=== PATIENT | male | born 1995 | race African-American/Black ===

== ENCOUNTER 2022-03-21 22:51 | Emergency (ER) | payer OTHER ==
[~2022-03-21] VITALS: Ht 177.8 cm; Wt 82.0 kg
[2022-03-21] MEDS ORDERED: SODIUM CHLORIDE 0.9% 1,000 ML IV ONE (23:30)
[2022-03-22 00:08] LABS: MEAN CORPUSCULAR HEMOGLOBIN 32.7 pg (28.0-32.0); MEAN CORPUSCULAR VOLUME 98.2 fL (80.0-94.0); MEAN PLATELET VOLUME 7.6 fl (7.4-10.4); PLATELET 229 x1000/uL (130-400); RED BLOOD CELL COUNT 3.67 mill/uL (4.7-6.1); RED CELL DISTRIBUTION WIDTH 13.2 % (11.6-14.6)
[2022-03-22 00:13] LABS: CHLORIDE 100 mEq/L (98-107)
[2022-03-22 00:23] LABS: CREATINE KINASE 139 IU/L (39-308); ETHANOL BLOOD < 10 mg/dL
[2022-03-22] MEDS ORDERED: POTASSIUM CHLORIDE 20MEQ TABLET SR PO NR (00:45)
[2022-03-22] MEDS ORDERED: IBUPROFEN 600MG TABLET PO NR (02:11)
[2022-03-22 02:48] LABS: CREATINE KINASE 135 IU/L (39-308)
[2022-03-22 03:03] LABS: CLARITY URINE CLEAR (CLEAR); COLOR URINE YELLOW (YELLOW); KETONES URINE NEGATIVE (NEGATIVE); LEUKOCYTE ESTERASE URINE NEGATIVE (NEGATIVE); NITRITE URINE NEGATIVE (NEGATIVE); OCCULT BLOOD URINE NEGATIVE (NEGATIVE); PH URINE 7.5 (4.5-8.0); PROTEIN URINE NEGATIVE (NEGATIVE); SPECIFIC GRAVITY URINE 1.023 (1.005-1.030)
[2022-03-22 03:20] LABS: *AMPHETAMINES SCREEN URINE PRESUMTIVE POSITIVE (NEGATIVE); *BARBITURATES SCREEN URINE NEGATIVE (NEGATIVE); *BENZODIAZEPINES SCREEN URINE NEGATIVE (NEGATIVE); *COCAINE SCREEN URINE NEGATIVE (NEGATIVE); CANNABINOID URINE SCREEN PRESUMTIVE POSITIVE (NEGATIVE); METHADONE URINE SCREEN NEGATIVE (NEGATIVE); OPIATES URINE SCREEN NEGATIVE (NEGATIVE); PHENCYCLIDINE URINE SCREEN PRESUMTIVE POSITIVE (NEGATIVE)
[2022-03-22 03:51] LABS: PLATELET ESTIMATE NORMAL
[2022-03-22 05:58] VITALS: BP 129/71
== END 2022-03-22 05:50 | disposition home or self-care (01) ==
LOC: ER 22:51 → EDBD 22:51 → ER 03-22 05:50
DX: F19.10 Other psychoactive substance abuse, uncomplicated (principal); R07.9 Chest pain, unspecified
CPT/HCPCS: 36415; 70450; 71045; 80053; 80305; 80320; 81003; 82550; 82962; 84484; 85025; 93005; 96360; 99285; J7030; G0480

== ENCOUNTER 2022-03-22 15:41 | Emergency (ER) | payer OTHER ==
[~2022-03-22] VITALS: Ht 175.3 cm; Wt 76.0 kg
[2022-03-22] MEDS ORDERED: SODIUM CHLORIDE 0.9% 1,000 ML IV ONE (16:00)
[2022-03-22 16:13] LABS: BASOPHILS % 0.2 % (0.0-2.0); EOSINOPHILS % 0.1 % (0.0-5.0); HEMATOCRIT. 34.9 % (42.0-52.0); HEMOGLOBIN. 11.8 g/dL (14.0-18.0); LYMPHOCYTES % 10.6 % (20.0-50.0); MEAN CORPUSCULAR HEMOGLOBIN 32.8 pg (28.0-32.0); MEAN CORPUSCULAR VOLUME 97.4 fL (80.0-94.0); MEAN PLATELET VOLUME 7.2 fl (7.4-10.4); MONOCYTES % 9.9 % (2.0-8.0); NEUTROPHILS % 79.2 % (40.0-76.0); PLATELET 223 x1000/uL (130-400); RED BLOOD CELL COUNT 3.58 mill/uL (4.7-6.1); RED CELL DISTRIBUTION WIDTH 12.8 % (11.6-14.6)
[2022-03-22 16:18] LABS: CHLORIDE 104 mEq/L (98-107)
[2022-03-22 16:27] LABS: ETHANOL BLOOD < 10 mg/dL
[2022-03-22 17:04] LABS: CLARITY URINE CLEAR (CLEAR); COLOR URINE YELLOW (YELLOW); KETONES URINE NEGATIVE (NEGATIVE); LEUKOCYTE ESTERASE URINE NEGATIVE (NEGATIVE); NITRITE URINE NEGATIVE (NEGATIVE); OCCULT BLOOD URINE NEGATIVE (NEGATIVE); PROTEIN URINE NEGATIVE (NEGATIVE); SPECIFIC GRAVITY URINE 1.014 (1.005-1.030)
[2022-03-22 17:15] LABS: *AMPHETAMINES SCREEN URINE PRESUMTIVE POSITIVE (NEGATIVE); *BARBITURATES SCREEN URINE NEGATIVE (NEGATIVE); *BENZODIAZEPINES SCREEN URINE NEGATIVE (NEGATIVE); *COCAINE SCREEN URINE NEGATIVE (NEGATIVE); CANNABINOID URINE SCREEN PRESUMTIVE POSITIVE (NEGATIVE); METHADONE URINE SCREEN NEGATIVE (NEGATIVE); OPIATES URINE SCREEN NEGATIVE (NEGATIVE); PHENCYCLIDINE URINE SCREEN PRESUMTIVE POSITIVE (NEGATIVE)
[2022-03-22] MEDS ORDERED: ACETAMINOPHEN 325MG TABLET PO ONE (22:45)
[2022-03-23 04:57] VITALS: BP 118/73
== END 2022-03-23 05:25 | disposition home or self-care (01) ==
LOC: ER 15:41
DX: T50.7X1A Poisoning by analeptics and opioid receptor antagonists, accidental (unintentional), initial encounter (principal); F12.10 Cannabis abuse, uncomplicated; F15.10 Other stimulant abuse, uncomplicated
CPT/HCPCS: 36415; 71045; 80053; 80305; 80320; 81003; 85025; 93005; 99285; J7030; G0480

== ENCOUNTER 2022-09-01 08:57 | Emergency (ER) | payer OTHER ==
[~2022-09-01] VITALS: Ht 180.3 cm; Wt 91.0 kg
[2022-09-01 08:59] VITALS: BP 110/60
[2022-09-01] MEDS ORDERED: ACETAMINOPHEN 325MG TABLET PO ONE (09:15)
== END 2022-09-01 09:41 ==
LOC: ER 08:57
DX: M54.50 Low back pain, unspecified (principal); G40.909 Epilepsy, unspecified, not intractable, without status epilepticus; F12.10 Cannabis abuse, uncomplicated; F15.10 Other stimulant abuse, uncomplicated; F16.10 Hallucinogen abuse, uncomplicated
CPT/HCPCS: 99283

== ENCOUNTER 2023-08-01 05:34 | Emergency (ER) | payer OTHER ==
[~2023-08-01] VITALS: Ht 185.4 cm; Wt 90.0 kg
[2023-08-01 05:47] VITALS: O2SAT 99
[2023-08-01 09:28] VITALS: BP 122/68; PULSE 92; RESP 20; TEMP 97.8
== END 2023-08-01 09:29 | disposition home or self-care (01) ==
LOC: ER 05:34
DX: S01.112A Laceration without foreign body of left eyelid and periocular area, initial encounter (principal); F15.10 Other stimulant abuse, uncomplicated; F12.10 Cannabis abuse, uncomplicated; F16.10 Hallucinogen abuse, uncomplicated; Z86.59 Personal history of other mental and behavioral disorders; Z98.890 Other specified postprocedural states; V89.2XXA Person injured in unspecified motor-vehicle accident, traffic, initial encounter; Y93.89 Activity, other specified; Y92.89 Other specified places as the place of occurrence of the external cause; Y99.8 Other external cause status
CPT/HCPCS: 12011; 99282